=== PATIENT | female | born 1970 | race African-American/Black ===

== ENCOUNTER 2016-11-08 17:40 | Inpatient (IN) | payer OTHER ==
[~2016-11-08] VITALS: Ht 165.1 cm; Wt 78.6 kg
[~2016-11-08 17:40] MED LIST: LASIX; OMEP20CA16 PO; ZOLP10TA PO
--- NOTE | 2016-11-08 18:17 | ERA ---
ER Documentation Chief Complaint Date/Time DATE: 11/08/16 TIME: 18:13 Chief Complaint SENT TO ED FROM [facility] FOR LOW HEMOGLOBIN. HPI 46-year-old woman with a history of anemia, hypertension, abnormal uterine bleeding presented to outside ER with palpitations and was found to be anemic. Patient was seen at [facility] and was found to be anemic to hemoglobin of 5.3. Patient is being evaluated by her BIOMEDICAL EQUIPMENT SPECIALIST doctors for finding of fibroids and had an EMB done recently. Patient has had received transfusions in the past and said to have been on iron supplementation to the point where she needs IV infusion because she does not absorb the iron p.o. patient reports continued intermittent heavy vaginal bleeding. She currently denies any chest pain, diaphoresis, syncope, dizziness, ongoing bleeding at this time. Patient denies any GI bleeding. She was transfused 1 unit of red blood cells at [facility]. She was transferred because there were no monitored beds at the [facility] and she was dissected here by Dr. WINN. ROS All systems reviewed and are negative except as per history of present illness. Medications Home Meds Reported Medications Furosemide* (Furosemide*) 40 Mg Tablet, 40 MG PO DAILY, TAB 11/08/16 Omeprazole* (Omeprazole*) 40 Mg Capsule.dr, 40 MG PO DAILY, #30 CAP 11/08/16 Zolpidem Tartrate* (Ambien*) 10 Mg Tablet, 10 MG PO QHS Y for INSOMNIA, TAB 10/17/15 Discontinued Reported Medications [Lasix] No Conflict Check 08/27/16 Omeprazole* (Omeprazole*) 20 Mg Capsule.dr, 20 MG PO DAILY, #30 CAP 10/17/15 Allergies Allergies: Coded Allergies: No Known Drug Allergy (Verified Allergy, Mild, 10/17/15) PMhx/Soc History of Surgery: Yes (C-SECTIONS) Anesthesia Reaction: No Hx Neurological Disorder: No Hx Respiratory Disorders: No Hx Cardiac Disorders: Yes (HTN) Hx Psychiatric Problems: No Hx Miscellaneous Medical Probl: No Hx Alcohol Use: No Hx Substance Use: No Hx Tobacco Use: No Smoking Status: Never smoker FmHx Family History: No coronary disease, No diabetes, No other Physical Exam Vitals Vital Signs Date Time Temp Pulse Resp B/P Pulse Ox O2 Delivery O2 Flow Rate FiO2 11/08/16 17:51 98.1 86 18 117/80 100 Physical Exam General: alert, well appearing, and in no distress, AOx4. normal pulse oximetry. Head: Atraumatic, normocephalic Eyes: pupils equal and reactive, extraocular eye movements intact, sclera anicteric. Ears: bilateral TM's and external ear canals normal. Nose: normal and patent, no erythema, discharge or polyps. Oropharynx: moist mucous membranes, pharynx normal without lesions. Neck: supple, no significant adenopathy. Heart: normal rate, regular rhythm, normal S1, S2, no murmurs, rubs, clicks or gallops. Peripheral pulses: normal Lungs: clear to auscultation, no wheezes, rales or rhonchi, symmetric air entry and normal work of breathing. Abdomen: soft, nontender, nondistended, no masses or organomegaly Extremities: no joint tenderness, deformity or swelling. Skin: normal coloration and turgor, no rashes, no suspicious skin lesions noted. Neurologic: Alert, moving all extremities symmetrically x 4, sensation grossly intact, no gross deficits Result Diagram: 11/09/16 0650 11/09/16 0650 Results 24 hrs Laboratory Tests Test 11/08/16 18:40 Activated Partial Thromboplast Time 28.6Sec Alanine Aminotransferase (ALT/SGPT) 23IU/L Albumin 3.8g/dl Albumin/Globulin Ratio 1.22 Alkaline Phosphatase 53IU/L Anion Gap 14 Aspartate Amino Transf (AST/SGOT) 23IU/L Blood Morphology Comment Blood Urea Nitrogen 11mg/dl Calcium Level 8.7mg/dl Carbon Dioxide Level 24mmol/L Chloride Level 108mmol/L Creatinine 0.65mg/dl Direct Bilirubin 0.00mg/dl Folate 13.0ng/ml Globulin 3.10g/dl Glucose Level 78mg/dl Hematocrit 22.8% Hemoglobin 6.9g/dl INR International Normalized Ratio 0.94 Indirect Bilirubin 0.1mg/dl Large Platelets FEW Lymphocytes # 2.310^3/ul Lymphocytes % 23.0% Magnesium Level 2.1mg/dl Mean Corpuscular Hemoglobin 20.1pg Mean Corpuscular Hemoglobin Concent 30.0g/dl Mean Corpuscular Volume 67.0fl Mean Platelet Volume 8.4fl Monocytes # 0.510^3/ul Monocytes % 5.0% Neutrophils # 7.110^3/ul Neutrophils % 72.0% Platelet Count 106001^3/UL Platelet Estimate PLT APPEAR INCREASED Potassium Level 4.2mmol/L Prothrombin Time 12.6Sec Prothrombin Time Ratio 1.0 Red Blood Count 3.4110^6/ul Red Cell Distribution Width 32.9% Sodium Level 142mmol/L Thyroid Stimulating Hormone (TSH) 1.770MIU/L Total Bilirubin 0.1mg/dl Total Protein 6.9g/dl Vitamin B12 Level 509pg/ml White Blood Count 9.910^3/ul Procedures/MDM MEDICAL DECISION MAKIN-year-old woman with a history of anemia, hypertension, abnormal uterine bleeding presented to outside ER with palpitations and was found to be anemic. She was transferred to [facility] for continued monitoring and transfusion. She is HDS and has no active bleeding. Will be admitted to /S for workup and mgmt. Departure Diagnosis: Primary Impression: Anemia Qualified Code: D64.9 - Anemia, unspecified type Condition: VINCENT Awan MD Nov 08, 2016 18:16
[2016-11-08] MEDS ORDERED: FURO40TA4 PO (18:20)
[2016-11-08] MEDS ORDERED: OMEP40CA6 PO (18:20)
[2016-11-08 18:51] LABS: HEMATOCRIT 22.8 % (37.0-47.0); MEAN CORPUSCULAR HEMOGLOBIN 20.1 pg (29.0-33.0); MEAN PLATELET VOLUME 8.4 fl (7.4-10.4); PLATELET COUNT 1083 10^3/UL (140-440); RED BLOOD COUNT 3.41 10^6/ul (4.20-5.40); RED CELL DISTRIBUTION WIDTH 32.9 % (11.5-14.5); UNCORRECTED WBC 9.9 10^3/ul (4.8-10.8); WHITE BLOOD COUNT 9.9 10^3/ul (4.8-10.8)
[2016-11-08 19:07] LABS: ALBUMIN 3.8 g/dl (3.3-4.9); HEMOGLOBIN 6.9 g/dl (12.0-16.0); INR 0.94; PROTIME 12.6 Sec (12.2-14.2)
[2016-11-08 19:08] LABS: CONDITION 1; LH ANALYZER COMMENTS 1; PARTIAL THROMBOPLASTIN TIME 28.6 Sec (25.0-35.0); POTASSIUM 4.2 mmol/L (3.5-5.1); SUSPECT 1
[2016-11-08 19:10] LABS: ALBUMIN/GLOBULIN RATIO 1.22; BILIRUBIN,INDIRECT 0.1 mg/dl (0-1.1); BILIRUBIN,TOTAL 0.1 mg/dl (0.2-1.3); CREATININE 0.65 mg/dl (0.44-1.00); TOTAL PROTEIN 6.9 g/dl (6.1-8.1)
[2016-11-08 19:11] LABS: CALCIUM 8.7 mg/dl (8.4-10.2)
--- NOTE | 2016-11-08 19:51 | HP ---
Date/Time of Note Date/Time of Note DATE: 11/08/16 TIME: 19:45 Assessment/Plan VTE Prophylaxis VTE Prophylaxis Intervention: SCD's Assessment/Plan Assessment/Plan 46 yo female with a past medical history of lower extremity edema, menorrhagia, who presents with generalized weakness and syncope. Patient has over the last month dealing with dizziness and malaise. 1. Severe anemia - symptomatic - admit the patient to med/surg, transfuse PRBC's , check H/H, pelvic US, monitor for acute blood loss 2. Syncope - 2/2 #1 - volume loss - will check 2D ECHO, cycle cardiac markers, TSH/Mag/Folate/B12, carotid duplex, fall precautions 3. Fibroids - patient will follow up with outpatient tire room supervisor earlier than scheduled 4. Thrombocytosis - will check hypercoagulable work - up 5. GI ppx - protonix po 6. DVT ppx - scds answered all of her questions. as per clinical course. this history and physical took greater then 45 minutes to complete HPI/ROS Admit Date/Time Admit Date/Time 11/08/2016, 7:45 pm Hx of Present Illness 46 yo female with a past medical history of lower extremity edema, menorrhagia, who presents with generalized weakness and syncope. Patient has over the last month dealing with dizziness and malaise. Otherwise she was waiting to see her tire room supervisor in November 2016. Since that time, she was filling lightheaded and dizzy with palpitations, leading to syncopal episode today. She also complains of pleuritic chest pain, shortness of breath worsening in nature. With no fevers/ chills, nausea/vomiting/diarrhea/constipation, or other constitutional symptoms. She initially went to [facility], where she was transfused 1 unit of PRBCs. She was transferred to [facility] for insurance purposes. [facility] labs: Hgb/Hct 5.3/18.7, Plts: 1116 MCV: 60.3 X-ray Chest" no focal abnormalities ROS 14 point review of systems completed, please refer to HPI for any positive findings PMH/Family/Social Past Medical History fibroids, lower extremity edema Past Surgical History 6 c-sections Family History Significant Family History: hypertension (mother) Social History Alcohol Use: occasionally Smoking Status: Never smoker Drug Use: none Exam/Review of Systems Vital Signs Vitals Vital Signs Date Time Temp Pulse Resp B/P Pulse Ox O2 Delivery O2 Flow Rate FiO2 11/08/16 17:51 98.1 86 18 117/80 100 Exam Exam Gen Dwain: NAD, AAOx4 HEENT: NC/AT, PERRLA, EOMI, no pharyngeal erythema, no tonsillar exudates, no lymphadenopathy, no JVD, no carotid bruits, mild conjunctival pallor NECK: supple, no thyromegaly THORAX: symmetrical, no obvious deformities CV: S1S2, tachycardiac, no M/G/R Lungs: CTAB no W/C/R/R Abd: soft, NT/ND, +BS, no rebound, no guarding, neg HSM EXT: trace bilateral lower extremity edema, no ecchymosis, no clubbing, FROM Neuro: CN II-XII grossly intact, no focal deficits Psych: good mentation, alert and oriented, good mood and affect Skin: C/D/I Labs Result Diagram: 11/08/16183911/08/161839 THIEN REDDING MD Nov 08, 2016 19:51
[2016-11-08] MEDS ORDERED: ACETAMINOPHEN 325 MG TAB PO PRN (20:00)
[2016-11-08] MEDS ORDERED: ZOLPIDEM 5 MG TAB PO PRN (20:00)
[2016-11-08] MEDS ORDERED: morphine 2 MG INJ IV PRN (20:00)
[2016-11-08] MEDS ORDERED: NACL 0.9% 3 ML SYG IV SCH (20:00)
[2016-11-08] MEDS ORDERED: ONDANSETRON 4 MG INJ IV PRN (20:00)
[2016-11-08 20:13] LABS: LYMPHOCYTES # 2.3 10^3/ul (0.8-2.9); MONOCYTE # 0.5 10^3/ul (0.3-0.9); NEUTROPHIL # 7.1 10^3/ul (1.6-7.5)
[2016-11-08 20:15] LABS: PLATELET ESTIMATE PLT APPEAR INCREASED
[2016-11-08 20:26] VITALS: TEMP 98
--- NOTE | 2016-11-08 20:38 | RADRPT ---
PROCEDURE: Ultrasound of the pelvis. CLINICAL INDICATION: Pain TECHNIQUE: Transabdominal and transvaginal ultrasound of the pelvis was performed to better evalua te the pelvic viscera. COMPARISON: No pertinent prior examinations were submitted for comparison. FINDINGS: LAST MENSTRUAL PERIOD: Unavailable UTERUS: Size: 12 x 6.3 x 7.5 cm. The uterine texture is heterogeneous with at least 2 fibroids. A 1.3 cm fi broid is noted at the isthmus and a 2.5 cm fibroid is noted within the posterior myometrium. The end ometrium measures 7.1 mm which is within normal limits. RIGHT OVARY: Size: 5.5 x 3.8 x 4.8 cm. A 3.8 cm simple cyst is noted in the right ovary. Normal Doppler flow is noted to the right ovary. LEFT OVARY: Size: 3.8 x 2.7 x 3.5 cm. A 2.1 cm simple cyst is noted in the left ovary. Normal Doppler flow is n oted to the left ovary. CUL-DE-SAC: There is no abnormal free fluid. IMPRESSION: Normal endometrium. No evidence of ovarian torsion. RPTAT: HIKT .Michael Carrington MD, Date Time Electronically viewed and signed by .Michael Carrington MD, on 11/08/2016 20:37 .T/
--- NOTE | 2016-11-08 21:31 | RADRPT ---
PROCEDURE: US Carotids. CLINICAL INDICATION: Syncope TECHNIQUE: Multiple sonographic of the carotid arteries were obtained utilizing pinon scale imaging . Color and Doppler imaging was performed. The images were reviewed on a PACS workstation. COMPARISON: No prior studies are available for comparison. FINDINGS: RIGHT: TFJ650 cm/sec Prox ICA80 82 cm/sec Mid ICA84 cm/sec Dist ICA87 cm/sec LOE893 cm/sec ICA/CCA:0.8 LEFT: WGI291 cm/sec Prox ICA82 cm/sec Mid JMP980 cm/sec Dist ICA92 cm/sec ECA87 cm/sec ICA/CCA:1.1 Antegrade flow is seen within the vertebral arteries bilaterally. No significant plaque is seen with in the carotid system. There is no evidence for hemodynamically significant stenosis or occlusion i s identified. IMPRESSION: 1. No evidence for hemodynamically significant stenosis - validated velocity measurements with margot ographic measurements, velocity criteria are extrapolated from diameter data as defined by the Socie ty of Radiologists in Ultrasound Consensus Conference Radiology 2003; 229;340-346. This study does indirectly reference the measurement of the distal ICA diameter as the denominator for stenosis rowdy urement. 2. Antegrade flow seen within the vertebral arteries bilaterally. RPTAT: HMVK .Marin Gray MD, Date Time Electronically viewed and signed by .Marin Gray MD, on 11/08/2016 21:31 .K/
[2016-11-08 22:04] LABS: MAGNESIUM 2.1 mg/dl (1.7-2.5)
[2016-11-08] MEDS: FAMOTIDINE 20 MG INJ IV SCH (22:16)
[2016-11-08 22:35] LABS: THYROID STIMULATING HORMONE 1.77 MIU/L (0.465-4.680)
[2016-11-08 22:45] VITALS: BP 105/52; PULSE 83; RESP 16; Ht 165.1 cm; Wt 78.6 kg
[2016-11-08 23:06] VITALS: BP 116/59; RESP 18
[2016-11-09] MEDS ORDERED: PANTOPRAZOLE (EC) 40 MG TAB PO SCH (06:00)
[2016-11-09] MEDS ORDERED: FUROSEMIDE 40 MG TAB PO SCH (06:00)
[2016-11-09 07:52] VITALS: BP 119/63; RESP 18
[2016-11-09 08:04] LABS: CREATININE 0.7 mg/dl (0.44-1.00)
[2016-11-09 08:05] LABS: CALCIUM 8.9 mg/dl (8.4-10.2)
[2016-11-09] MEDS: FAMOTIDINE 20 MG INJ IV SCH (08:17)
[2016-11-09 08:26] LABS: HEMATOCRIT 26.9 % (37.0-47.0); HEMOGLOBIN 8.5 g/dl (12.0-16.0); MEAN CORPUSCULAR HEMOGLOBIN 22.1 pg (29.0-33.0); MEAN CORPUSCULAR HGB CONC 31.6 g/dl (32.0-37.0); MEAN PLATELET VOLUME 8.9 fl (7.4-10.4); PLATELET COUNT 1036 10^3/UL (140-440); RED BLOOD COUNT 3.85 10^6/ul (4.20-5.40); UNCORRECTED WBC 9.1 10^3/ul (4.8-10.8); WHITE BLOOD COUNT 9.1 10^3/ul (4.8-10.8)
[2016-11-09 08:30] LABS: CONDITION 1; LH ANALYZER COMMENTS 1; SUSPECT 1
[2016-11-09] MEDS ORDERED: NON-FORMULARY/PATIENT OWN MED (Omeprazole* 40 MG) PO SCH (09:00)
[2016-11-09 11:01] LABS: EOSINOPHILS # 0.3 10^3/ul (0.0-0.5); LYMPHOCYTES # 2.4 10^3/ul (0.8-2.9); MONOCYTE # 0.4 10^3/ul (0.3-0.9); NEUTROPHIL # 6.1 10^3/ul (1.6-7.5)
--- NOTE | 2016-11-09 16:02 | PDOCDIS ---
Discharge Instructions DIAGNOSIS Discharge Diagnosis: ANEMIA CONDITION Patient Condition: Good HOME CARE INSTRUCTIONS: Special Diet: REGULAR ACTIVITY: Activity Restrictions: No Restrictions Slowly Increase Activity Do not Drive (dont drive if dizzy) FOLLOW UP/APPOINTMENTS Appointments PCP- 1wk OB - 1 wk CINDY LUU MD Nov 09, 2016 16:02
[2016-11-09] MEDS ORDERED: UDFER PO (16:08)
[2016-11-09] MEDS ORDERED: ASPI-664 PO (16:08)
[2016-11-09] MEDS ORDERED: ASPIRIN (EC) 81 MG TAB PO SCH (16:30)
--- NOTE | 2016-11-09 18:05 | RADRPT ---
Echocardiogram Report Patient Name: WILL COLE Gender: Female Date: 1970 Study Date: 09-Nov-2016 Certified Nurses' Aide: Taylor Altamirano ALISIA Location: 401 Ref. Physician: THIEN REDDING Quality: Good Procedures: Transthoracic echocardiogram with complete 2D, M-Mode, and doppler examination. Indications: Syncope. 2D/M Mode Doppler Measurement Value Normal Ranges Measurement Value Normal Ranges LVIDd 2D 4.7 3.5 - 5.6 cm AV Peak Skyler 1.3 m/sec LVIDs 2D 3.0 2.1 - 4.1 cm AV Peak PG 6.3 mmHg LVPWd 2D 1.0 0.6 - 1.1 cm LVOT Peak Skyler 1.1 m/sec IVSd 2D 1.0 0.6 - 1.1 cm LVOT Peak PG 4.7 mmHg AoR Diam 2D 2.7 2.0 - 3.7 cm MV E Peak Skyler 0.7 m/sec EDV 2D 103.8 cm3 MV A Peak Skyler 0.6 m/sec ESV 2D 28.0 cm3 MV E/A 1.1 LA Dimen 2D 3.1 2.3 - 4.0 cm MV Decel Time 199 msec MV Decel [place] 3 MV E/A 1.1 TR Peak Skyler 2.2 m/sec TR Peak PG 18.9 mmHg RVSP 22.0 mmHg Findings Left Ventricle: Normal left ventricular systolic function. Normal left ventricular cavity size. Normal left ventricular wall thickness. Ejection fraction is visually estimated at 60 %. Right Ventricle: Normal right ventricular size. Normal right ventricular systolic function. Left Atrium: The left atrium is normal in size. Right Atrium: The right atrium is normal in size. Mitral Valve: Normal appearance and function of the mitral valve with trace physiologic regurgitation. Aortic Valve: Normal appearance of the aortic valve. No significant aortic stenosis or insufficiency. Tricuspid Valve: Normal appearance of the tricuspid valve. Estimated peak PA systolic pressure 21 mmHg. There is mild tricuspid regurgitation. Pericardium: Normal pericardium with no significant pericardial effusion. Aorta: Normal aortic root. IVC: Normal size and normal respiratory collapse consistent with normal right atrial pressure. Conclusions 1.Normal left ventricular systolic function. Normal left ventricular cavity size. Normal left ventricular wall thickness. Ejection fraction is visually estimated at 60 %. 2.Normal appearance and function of the mitral valve with trace physiologic regurgitation. 3.Normal appearance of the tricuspid valve. Estimated peak PA systolic pressure 21 mmHg. There is mild tricuspid regurgitation. Electronically Signed By: Jin Ayala 09-Nov-2016 18:04:20 -0800 Patient Name: WILL COLE Study Date: 09-Nov-[id number]
[2016-11-10] MEDS ORDERED: FERROUS SULFATE 60 MG/ML 5ML CUP PO SCH (09:00)
--- NOTE | 2016-11-10 17:11 | DS ---
DATE OF ADMISSION: 11/08/2016 DATE OF DISCHARGE: 11/09/2016 PRIMARY CARE PHYSICIAN: Unknown. ASPHALT DISTRIBUTOR TENDER: None. DIAGNOSES ON ADMISSION: 1. Syncope. 2. Symptomatic anemia. FINAL DIAGNOSES 1. Syncope. 2. Symptomatic anemia. 3. Menorrhagia. 4. Reactive thrombocytosis. HOSPITAL COURSE: A 46-year-old female admitted with severe anemia noted to be around 6 with syncope , admission to the ER. She was transferred here for continuity. The patient had no further syncope during hospital stay, nonfocal. Blood pressure okay. EKG: Sinu s rhythm. Essentially has symptomatic anemia due to menorrhagia. She was transfused 3 units of blo od. She is presently stable for discharge. She was given advice to visit her LENS GRINDER ROUGH sooner than mat argueta, she has fibroids. Thrombocytosis above 1000 and as such to avoid the complication of hyperviscosity and stroke, she w ill need aspirin. Once her platelets come down, the patient may discontinue aspirin. DISCHARGE PLAN: Home. Follow up with primary in 1 week, OB in 1 week. DIET: Regular. ACTIVITY: No driving if dizzy. ALLERGIES: NONE. CONDITION: Good. PENDING TESTS: Hypercoagulable panel at . FUNCTIONAL STATUS: The patient is awake, alert, and oriented, is aware of the plan of care. IMAGING STUDIES: Carotid ultrasound, no acute process. Pelvic ultrasound normal endometrium, no ev idence of torsion. White cell count 9, hemoglobin and hematocrit of 8.5 and 26, MCV 70, platelets of 1000. INR 0.9. C MP unremarkable. TSH of 1.7. Folic acid is 13, B12 500. DISCHARGE MEDICATIONS: 1. New medications: Iron 325 daily. 2. Ecotrin 81 daily. 3. Colace 100 daily as needed. 4. Stopped medications: Ambien. 5. Continued medications: Lasix 40 daily. 6. Omeprazole 40 daily. Dictated By: CINDY COWART/RONNIE Conf#: [id number] DID#: [id number]
[2016-11-11 10:33] LABS: PROTEIN C 97 % normal (70-180)
== END 2016-11-09 19:20 | disposition home or self-care (01) | DRG 812 ==
LOC: E/R 17:40 → MS1 18:42
PROVIDERS: ADMIT Family Medicine; ATTEND Family Medicine
PROC: 30233N1 Transfusion of Nonautologous Red Blood Cells into Peripheral Vein, Percutaneous Approach (ICD-10-PCS; principal; 2016-11-08)
DX: D50.0 Iron deficiency anemia secondary to blood loss (chronic) (principal); D69.59 Other secondary thrombocytopenia; R55 Syncope and collapse; D25.9 Leiomyoma of uterus, unspecified; N92.0 Excessive and frequent menstruation with regular cycle; I10 Essential (primary) hypertension
CPT/HCPCS: 36430; 76856; 80048; 80053; 82607; 82746; 83735; 83890; 84443; 85025; 85300; 85302; 85305; 85610; 85730; 86850; 86900; 86901; 86920; 93306; 93880; J2270; P9016

== ENCOUNTER 2017-02-05 06:42 | Day surgery (SDC) | payer OTHER ==
[~2017-02-05] VITALS: Ht 152.4 cm; Wt 80.0 kg
[2017-02-05] VITALS (9 sets, daily range): BP systolic 112–159; BP diastolic 68–90; PULSE 56–90; RESP 13–20
[~2017-02-05 06:42] MED LIST changes: +ASPI-664 PO; +FURO40TA4 PO; -LASIX; -OMEP20CA16 PO; +OMEP40CA6 PO; +UDFER PO; -ZOLP10TA PO
--- NOTE | 2017-02-05 07:29 | HPN ---
Date/Time of Note Date/Time of Note DATE: 02/05/17 TIME: 07:29 Interval H&P Admission Note Pt. seen H&P reviewed: No system changes VIRI MORALES MD Feb 05, 2017 07:29
--- NOTE | 2017-02-05 07:53 | RADRPT ---
PROCEDURE: Chest Radiograph. CLINICAL INDICATION: Preop TECHNIQUE: Single frontal chest radiograph. COMPARISON: Chest radiograph 02/06/2015 FINDINGS: The cardiomediastinal silhouette is within normal limits. No infiltrate or effusion is seen. Th e bones are intact. IMPRESSION: 1. Unremarkable chest radiograph. RPTAT: KK .Shalom Louise MD, MD Date Time Electronically viewed and signed by .Shalom Louise MD, on 02/05/2017 07:52 .B/
[2017-02-05] MEDS ORDERED: PROPOFOL 20 ML ONE (09:43)
[2017-02-05] MEDS ORDERED: MIDAZOLAM 1 MG/ML 2 ML INJ ONE (09:43)
[2017-02-05] MEDS ORDERED: FENTAnyl 50 MCG/ML VIAL ONE (09:43)
[2017-02-05] MEDS ORDERED: LIDOCAINE 1% (MDV) 20 ML INJ ONE (09:50)
[2017-02-05] MEDS ORDERED: ONDANSETRON 4 MG INJ ONE (09:59)
[2017-02-05] MEDS ORDERED: DEXAMETHASONE 4 MG/ML 1 ML INJ ONE (09:59)
[2017-02-05] MEDS ORDERED: FAMOTIDINE 20 MG INJ ONE (09:59)
[2017-02-05] MEDS ORDERED: CEFAZOLIN 1 GM INJ ONE (10:01)
--- NOTE | 2017-02-05 10:47 | PD.PPDC ---
MEDICAL OFFICE WORKER Discharge Instruction Diagnosis Final Diagnosis: uterine fibroid hypermenorrhea Condition Patient Condition: Stable Diet Diet: Resume Regular Diet Activity/Restrictions Activity: May Shower Restrictions: No Sexual Activity Nothing in the Vagina No [place] No Tampons, douche Follow-up Follow-up with Physician: 2, Week/Weeks Return to clinic for DESK CLERK Instructions: Fever greater than 101 Chills Worsening abdominal pain Excessive Vaginal Bleeding More than 2 pads per hour Unable to tolerate diet IVRI MORALES MD Feb 05, 2017 10:47
[2017-02-05] MEDS ORDERED: OXYCODONE/ACETAMINOPHEN (5/325) TAB PO ONE ×2 (11:00→12:36)
[2017-02-05] MEDS ORDERED: MEPERIDINE 25 MG INJ IV PRN (11:00)
[2017-02-05] MEDS ORDERED: HYDROmorphONE (0.2 MG/ML) 10ML SYG IV PRN (11:00)
[2017-02-05] MEDS: HYDROmorphONE (0.2 MG/ML) 10ML SYG IV PRN ×3 (11:16→11:44)
--- NOTE | 2017-02-09 17:09 | OPR ---
DATE OF OPERATION: 02/05/2017 PREOPERATIVE DIAGNOSIS: Uterine fibroid and hypermenorrhea. POSTOPERATIVE DIAGNOSIS: Uterine fibroid and hypermenorrhea. OPERATION PERFORMED: Hysteroscopic endometrial hydrothermal ablation. SURGEON: Claudia Leyva MD ANESTHESIA: General. ANESTHESIOLOGIST: . DRY CURE WORKER: Ray schneider. PROCEDURE: Under proper induction of general anesthesia, the patient was placed in the dorsal litho edmar position. Perineal area and vaginal wall was prepped and draped in usual aseptic manner. On i nspection, external genitalia revealed no gross abnormality. Bimanual examination, uterus felt to b e approximately 8 to 10 weeks of gestational size, firm in consistency, freely mobile. There was no palpable adnexal pathology. Weighted speculum was introduced, cervix identified, which was grasped with a single-tooth tenaculum . Cavity sounded, which was 8.5 cm. Os dilated up to 8 and the hysteroscope which part of the hydr othermal increment cassette, which belongs to the hydrothermal ablation kit, and the tip was off and the endocervical canal was inserted with installation of the normal saline beginning. Find the rig ht position visualizing both ostia and the fundus. Then, tenaculum was fixed to the hysteroscope an d leak check, pressure check, which were adequate and no leaking. At this point, the procedure star serg and the temperature went up to gradually 80s and ablation was completed, approximately 10 minute s, and 2 minutes of cooling. Endometrium was ablated and the color was changed from red to whitish pinon. Hysteroscopic exam was done. Endocervical canal was free of the ablation. Fluid deficit is at 0 and there was no bleeding from the tenaculum site. Every instrument removed and hysteroscope r emoved. The procedure was completed and the patient was sent to recovery room in stable condition. Dictated By: CLAUDIA LION/RONNIE Conf#: [id number] DID#: [id number]
== END 2017-02-05 14:01 | disposition home or self-care (01) ==
LOC: SDS 06:42
PROVIDERS: ATTEND Obstetrics & Gynecology
DX: D25.9 Leiomyoma of uterus, unspecified (principal); N92.0 Excessive and frequent menstruation with regular cycle; E66.9 Obesity, unspecified; Z68.34 Body mass index [BMI] 34.0-34.9, adult
CPT/HCPCS: 58563; 71010; 84703; J0690; J1100; J1170; J2250; J2405; J3010; Z7512; Z7610